=== PATIENT | female | born 1965 | race Caucasian/White ===

== ENCOUNTER 2018-03-22 11:33 | Emergency (ER) | payer OTHER ==
[~2018-03-22] VITALS: Ht 162.6 cm; Wt 57.6 kg
[~2018-03-22 11:33] MED LIST: CEFTRIAXONE250 MG IV; CLONAZEPAM0.5 M2 PO; DIVIGEL1 G1 TOP; FLUTICASONE PRO16 GM NASB; KEFLEX250 M1 PO; MAGNESIUM400 M1 PO; NYSTATIN100000 UNI PO; OMEPRAZOLE40 M1 PO; PAXIL10 M1 PO; SEROQUEL25 M1 PO; VITAMIN C500 M6 PO
[2018-03-22 12:16] LABS: ABSOLUTE BASOPHIL COUNT 0 /CUMM (0.0-0.2); ABSOLUTE EOSINOPHIL COUNT 0.1 /CUMM (0.0-0.7); ABSOLUTE GRANULOCYTE CT 2.8 /CUMM (1.4-6.5); ABSOLUTE LYMPH COUNT 1.4 /CUMM (1.2-3.4); ABSOLUTE MONOCYTE COUNT 0.5 /CUMM (0.10-0.60); BASOPHIL % 0.9 % (0.0-2.0); EOSINOPHIL % 1.3 % (0-5); GRANULOCYTE % 59.4 % (42.2-75.2); HEMATOCRIT 38.1 % (37-47); MEAN CORPUSCULAR HGB 29.6 PG (27.0-31.0); MEAN CORPUSCULAR HGB CONC 33.7 G/DL (33.0-37.0); MEAN CORPUSCULAR VOLUME 87.8 FL (81.0-99.0); MEAN PLATELET VOLUME 9.7 FL (7.4-10.4); PLATELET COUNT 207 /CUMM (130-400); RBC DISTRIBUTION WIDTH 14.2 % (11.5-14.5); RED BLOOD CELL CT 4.34 /CUMM (4.20-5.40); WHITE BLOOD CELL COUNT 4.7 /CUMM (4.8-10.8)
--- NOTE | 2018-03-22 14:03 | ED GI/GU/ABDOMINAL COMPLAINT ---
History of Present Illness General Chief Complaint: General Adult Stated Complaint: FEEL LIKE IM GOING TO PASS OUT, MULTIPLE COMPLAINT Source: patient, family, old records Exam Limitations: no limitations Vital Signs & Intake/Output Vital Signs & Intake/Output Vital Signs Date Time Temp Pulse Resp B/P B/P Pulse O2 O2 Flow FiO2 Mean Ox Delivery Rate 03/22 1542 98.0 61 20 132/67 100 Room Air 03/22 1137 97.7 76 16 111/79 98 Room Air Allergies Coded Allergies: Penicillins (Severe, THROAT CLOSES 10/04/15) neomycin (Mild, REDNESS 10/04/15) amoxicillin (From AUGMENTIN) (HIVES, RED RASH UP NECK 03/30/17) clavulanic acid (From AUGMENTIN) (HIVES, RED RASH UP NECK 03/30/17) doxycycline (ANAPHYLAXIS 03/30/17) erythromycin base (HIVES 10/04/15) latex (HIVES 10/04/15) morphine (THROAT CLOSURE, HIVES 10/04/15) pseudoephedrine (RAPID HR 10/04/15) Reconcile Medications Ascorbate Calcium (Vitamin C) (Unknown Strength) TABLET (Unknown Dose) PO DAILY SUPPLEMENT (Reported) Ceftriaxone Sodium (Ceftriaxone) (Unknown Strength) VIAL (Unknown Dose) IV DAILY LYME (Reported) Clonazepam 0.5 MG TABLET 1 TAB PO TID PRN ANXIETY (Reported) Estradiol (Divigel) 1 MG/GRAM (0.1 %) GEL.PACKET 1 URBANO TOP EOD HRT (Reported) Fluticasone Propionate 50 MCG/ACTUATION SPRAY.SUSP 2 SPRAY NASB DAILY ALLERGIES (Reported) Magnesium Oxide (Magnesium) (Unknown Strength) CAPSULE (Unknown Dose) PO DAILY SUPPLEMENT (Reported) Nystatin 100,000 UNIT/ML ORAL.SUSP 5 ML PO Q6H SWISH AND SWALLOW - THRUSH ( Reported) Omeprazole 40 MG CAPSULE.DR 1 CAP PO DAILY GI (Reported) Paroxetine HCl (Paxil) 10 MG TABLET 1 TAB PO QHS MENTAL HEALTH (Reported) Quetiapine Fumarate (Seroquel) 25 MG TABLET 1 TAB PO QHS PRN SLEEP (Reported) Triage Note: PT TO TRIAGE WITH MULTIPLE COMPLAINTS , STATES THAT SHE HAS CHRONIC LYME DISEASE , AND THAT FOR THE PAST 3 MONTHS SHE HAS JUST NOT BEEN FEELING WELL, STATES THAT SHE TAKES HERBS TO TREAT LYME DISEASE, HAS BEEN SEEN BY MULTIPLE DOCTORS, UROLOGY FOR BLADDER INFECTION, RHUEMATOLOGIST, INFECTIOUS DISEASE DOCTOR, ÁNGEL. AND THEY HAVE NOT BEEN ABLE TO FIND ANYTHING , STATES THAT SHE HAS BEEN WEAK ALL WEAK BUT ITS NOT GETTING BETTER. Triage Nurses Notes Reviewed? yes ? N Is pt currently ? No HPI: The patient presents with increasing weakness fatigue feeling like she is dehydrated and when she got a pass out. Patient states that she's been having dysuria and pain in her right lower quadrant for the past few weeks. Patient was seen by her primary care physician who stated that her urine was negative but put her on Levaquin. Today is day 3 of the antibiotics. Patient states that she is not feeling any better. Patient states that she has chronic Lyme and has been on multiple antibiotics over the years and has even had C. difficile. Patient denies any recent diarrhea. The pain is sharp and stabbing in nature. The pain is 8 out of 10. The pain is the right lower quadrant and radiates suprapubically. There are no aggravating or mitigating factors. She denies any constipation or diarrhea. She occasionally feels nauseous but has no vomiting. She any fevers or chills. Past History Travel History Traveled to [place] past 21 day No Medical History Any Pertinent Medical History? see below for history Cardiovascular: PVC'S "DOUBLE HEART BEAT" Psychiatric: anxiety, PTSD Endocrine: LYME Blood Disorders: NONE Surgical History Surgical History: non-contributory Psychosocial History What is your primary language Wolof Tobacco Use: Never used ETOH Use: denies use Illicit Drug Use: denies illicit drug use Family History Hx Contributory? No Review of Systems Review of Systems Constitutional: Reports: see HPI, weakness. EENTM: Reports: no symptoms. Respiratory: Reports: no symptoms. Cardiovascular: Reports: no symptoms. GI: Reports: see HPI, abdominal pain. Genitourinary: Reports: see HPI, dysuria, frequency. Musculoskeletal: Reports: no symptoms. Skin: Reports: no symptoms. Neurological/Psychological: Reports: no symptoms. Hematologic/Endocrine: Reports: no symptoms. Immunologic/Allergic: Reports: no symptoms. All Other Systems: Reviewed and Negative Physical Exam Physical Exam General Appearance: well developed/nourished, alert, awake, anxious, mild distress Head: atraumatic, normal appearance Eyes: Bilateral: PERRL, EOMI. Ears, Nose, Throat, Mouth: hearing grossly normal, DRY MUCUS MEMBRANES Neck: normal inspection, supple, full range of motion Respiratory: normal breath sounds, chest non-tender, no respiratory distress, lungs clear Cardiovascular: regular rate/rhythm, normal peripheral pulses Gastrointestinal: normal bowel sounds, soft, no organomegaly, tenderness (RLQ), NO REBOUND, NO GUARDING Back: normal inspection, normal range of motion Extremities: normal range of motion Neurologic/Psych: no motor/sensory deficits, awake, alert, oriented x 3, normal mood/affect Skin: intact, normal color, warm/dry Core Measures ACS in differential dx? No Sepsis Present: No Sepsis Focused Exam Completed? No Progress Differential Diagnosis: diverticulitis, endometritis, ischemic bowel, inflamm bowel dis, pancreatitis, UTI/pyelo Plan of Care: Orders Procedure Date/time Status URINE DRUGS OF ABUSE 03/22 1143 Complete URINALYSIS 03/22 1143 Complete TROPONIN LEVEL 03/22 1143 Complete LIPASE 03/22 1143 Complete COMPREHENSIVE METABOLIC PANEL 03/22 1143 Complete CBC WITHOUT DIFFERENTIAL 03/22 1143 Complete EKG 03/22 1143 Active Laboratory Tests 03/22/18 1201: Urine Opiates Screen 206, Methadone Screen 49, Barbiturate Screen < 60, Ur Phencyclidine Scrn < 6.00, Amphetamines Screen < 100, U Benzodiazepines Scrn < 85, Urine Cocaine Screen < 50, Urine Cannabis Screen < 5.00, Urine Color STRAW, Urine Clarity CLEAR, Urine pH 8.0, Ur Specific [place] 1.010, Urine Protein NEG, Urine Ketones NEG, Urine Nitrite NEG, Urine Bilirubin NEG, Urine Urobilinogen 0.2, Ur Leukocyte Esterase NEG, Ur Microscopic SEDIMENT EXAMINED, Urine RBC RARE , Ur Epithelial Cells MOD H, Urine Hemoglobin TRACE-INTACT, Urine Glucose NEG 03/22/18 1143: Anion Gap 8, Estimated GFR > 60, BUN/Creatinine Ratio 15.7, Glucose 92, Calcium 9.5, Total Bilirubin 0.5, AST 16, ALT 25, Alkaline Phosphatase 39, Troponin I < 0.01, Total Protein 6.2 L, Albumin 4.1, Globulin 2.1, Albumin/Globulin Ratio 2.0, Lipase 147, CBC w Diff NO MAN DIFF REQ, RBC 4.34, MCV 87.8, MCH 29.6, MCHC 33.7, RDW 14.2, MPV 9.7, Gran % 59.4, Lymphocytes % 28.6, Monocytes % 9.8 H, Eosinophils % 1.3, Basophils % 0.9, Absolute Granulocytes 2.8, Absolute Lymphocytes 1.4, Absolute Monocytes 0.5, Absolute Eosinophils 0.1, Absolute Basophils 0 Diagnostic Imaging: Viewed by Me: CT Scan. Discussed w/RAD: CT Scan. Radiology Impression: PATIENT: SHAQ TERRY PRESENT AGE: 52 PATIENT ACCOUNT NO: [id number] : 64 LOCATION: [facility] ORDERING PHYSICIAN: Mele Gutierrez MD SERVICE DATE: 03/22/18 EXAM TYPE: CAT - CT ABD & PELVIS W IV CONTRAST EXAMINATION: CT ABDOMEN AND PELVIS WITH CONTRAST CLINICAL INFORMATION: Right lower quadrant pain. COMPARISON: Abdomen CT from . Chest CT from 11/18/2014 and 12/28/2016. TECHNIQUE: Multidetector volumetric imaging was performed of the abdomen and pelvis following IV administration of 95 mL of Optiray 320 intravenous contrast. Sagittal and coronal reformatted images were obtained on the technologist's workstation. DLP: 264 mGy-cm FINDINGS: LUNG BASES: Unremarkable. No basilar consolidation or pleural effusion. LIVER, GALLBLADDER, AND BILIARY TREE: The liver has normal size, shape, and attenuation. No focal hepatic lesion. The gallbladder is normal ; no radiopaque gallstones, wall thickening or pericholecystic fluid. No intrahepatic or extrahepatic bile duct dilatation. PANCREAS: Unremarkable. SPLEEN: Unremarkable. ADRENAL GLANDS: Small, 0.9 cm wide nodule of the medial left adrenal gland has attenuation of approximately 35 Hounsfield units on these contrast enhanced images; it is unchanged in size compared to 11/18/2014. The right adrenal gland is unremarkable. KIDNEYS AND URETERS: The kidneys have normal size and attenuation. No solid renal mass, hydroureteronephrosis, urolithiasis or perinephric edema. 1.7 x 2.3 cm benign cyst of the upper pole of the right kidney. BLADDER: Unremarkable. BOWEL AND PERITONEUM: The small and large bowel are normal in caliber. The appendix is normal (e.g., image 492, series 3). No colonic wall thickening or pericolonic fat stranding. No evidence of acute inflammation or obstruction along the gastrointestinal tract. No ascites or pneumoperitoneum. ABDOMINAL WALL: Unremarkable. LYMPH NODES: No pathologic sized lymph nodes in the abdomen or pelvis. No inguinal lymphadenopathy. VASCULAR: Abdominal aorta is normal in caliber and the celiac trunk, SMA, NAHOMI and renal arteries are widely patent. PELVIC: Status post hysterectomy. No pelvic mass or free fluid. SKELETAL: No suspicious bone lesions. IMPRESSION: - The appendix is normal. No acute findings along the gastrointestinal tract. - No evidence of urolithiasis or urinary tract obstruction. - Small lipid rich adenoma of the left adrenal gland remains stable in size compared to 11/18/2014. DICTATED BY: Mario Ashraf MD DATE/TIME DICTATED:03/22/181514 FIELD [employer]LE ADJUSTER:JOON DATE/TIME TRANSCRIBED:1514 CONFIDENTIAL, DO NOT COPY WITHOUT APPROPRIATE AUTHORIZATION. < Electronically signed in Other Vendor System> SIGNED BY: Mario Ashraf MD 03/22/18 2697 Initial ED EKG: none Comments: After the CAT scan with IV contrast patient states that she now feels short of breath. Patient thinks that she had a reaction back in the but she is unsure. She feels itchy. Her lungs are clear to auscultation bilaterally with good air entry. There is no wheezing or stridor. There is no oral pharyngeal edema. There is no rash noted. We'll give IV Benadryl and continue to observe. The patient's breathing has normalized and the itchiness has resolved after IV Benadryl. Labs and CAT scan results have been discussed with the patient. Questions are answered. Departure Departure Disposition: HOME OR SELF CARE Condition: Stable Clinical Impression Primary Impression: Lower abdominal pain, unspecified Referrals: Cris Medley DO (PCP/Family) Ana Muñiz MD Additional Instructions: Follow-up with Dr. Muñiz. Return if symptoms worsen or for any concerns. Departure Forms: Customer Survey General Discharge Information
--- NOTE | 2018-03-22 15:32 | CT SCAN REPORT ---
EXAMINATION: CT ABDOMEN AND PELVIS WITH CONTRAST CLINICAL INFORMATION: Right lower quadrant pain. COMPARISON: Abdomen CT from 07/10/2011. Chest CT from 11/18/2014 and 12/28/2016. TECHNIQUE: Multidetector volumetric imaging was performed of the abdomen and pelvis following IV administration of 95 mL of Optiray 320 intravenous contrast. Sagittal and coronal reformatted images were obtained on the technologist's workstation. DLP: 264 mGy-cm FINDINGS: LUNG BASES: Unremarkable. No basilar consolidation or pleural effusion. LIVER, GALLBLADDER, AND BILIARY TREE: The liver has normal size, shape, and attenuation. No focal hepatic lesion. The gallbladder is normal; no radiopaque gallstones, wall thickening or pericholecystic fluid. No intrahepatic or extrahepatic bile duct dilatation. PANCREAS: Unremarkable. SPLEEN: Unremarkable. ADRENAL GLANDS: Small, 0.9 cm wide nodule of the medial left adrenal gland has attenuation of approximately 35 Hounsfield units on these contrast enhanced images; it is unchanged in size compared to 11/18/2014. The right adrenal gland is unremarkable. KIDNEYS AND URETERS: The kidneys have normal size and attenuation. No solid renal mass, hydroureteronephrosis, urolithiasis or perinephric edema. 1.7 x 2.3 cm benign cyst of the upper pole of the right kidney. BLADDER: Unremarkable. BOWEL AND PERITONEUM: The small and large bowel are normal in caliber. The appendix is normal (e.g., image 492, series 3). No colonic wall thickening or pericolonic fat stranding. No evidence of acute inflammation or obstruction along the gastrointestinal tract. No ascites or pneumoperitoneum. ABDOMINAL WALL: Unremarkable. LYMPH NODES: No pathologic sized lymph nodes in the abdomen or pelvis. No inguinal lymphadenopathy. VASCULAR: Abdominal aorta is normal in caliber and the celiac trunk, SMA, NAHOMI and renal arteries are widely patent. PELVIC: Status post hysterectomy. No pelvic mass or free fluid. SKELETAL: No suspicious bone lesions. IMPRESSION: - The appendix is normal. No acute findings along the gastrointestinal tract. - No evidence of urolithiasis or urinary tract obstruction. - Small lipid rich adenoma of the left adrenal gland remains stable in size compared to 11/18/2014.
[2018-03-22 15:42] VITALS: BP 132/67
== END 2018-03-22 17:33 ==
LOC: ERH 11:33
PROVIDERS: Physician Assistant Medical
DX: R10.31 Right lower quadrant pain (principal); R30.0 Dysuria; R11.0 Nausea; I49.3 Ventricular premature depolarization; A69.20 Lyme disease, unspecified
CPT/HCPCS: 74177; 80307; 81001; 96374; J1200